=== PATIENT | female | born 1985 | race Caucasian/White ===

== ENCOUNTER → 2019-08-17 | Outpatient (CLI) | payer BC ==
[2019-08-17 10:44] LABS: Basophils % (A) 2 %; Eosinophils % (A) 1 %; HCT 38.4 % (34.0-46.0); HGB 12.5 gm/dL (11.4-16.0); Lymphocytes # (A) 0.4 k/uL (1.0-4.8); Lymphocytes % (A) 16 %; MCHC 32.5 g/dL (31.0-37.0); Mean Platelet Volume 6.6; Monocytes # (A) 0.2 k/uL (0-1.0); Monocytes % (A) 6 %; Neutrophils # (A) 1.7 k/uL (1.3-7.7); Neutrophils % (A) 74 %; Platelet Count 140 k/uL (150-450); RBC 4.99 m/uL (3.80-5.40); WBC 2.4 k/uL (3.8-10.6)
[2019-08-17 14:08] LABS: Glucose 2 Hour 130 mg/dL
[2019-08-17 17:09] LABS: African American GFR (CKD) 112.3 (60.0-200.0); Albumin 4.3 g/dL (3.80-4.90); Albumin/Globulin Ratio 2.53 (1.60-3.17); Anion Gap 10.5 mmol/L (4.00-12.00); BUN/Creat Ratio 11.25 Ratio (12.00-20.00); Calcium 8.9 mg/dL (8.7-10.3); Carbon Dioxide 19.5 mmol/L (21.6-31.8); Chol/HDL Ratio 4.16; Globulin 1.7 g/dL (1.6-3.3); LDL Cholesterol,Calculated 91.2 mg/dL (0.0-131.0); Total Bilirubin 0.6 mg/dL (0.2-1.2); VLDL Calculation 28.8 mg/dL (5.00-40.00)
== END | disposition home or self-care (01) ==
LOC: LABWHC1 09:17
PROVIDERS: ATTEND Family Medicine
DX: R42 Dizziness and giddiness (principal)
CPT/HCPCS: 36415; 80053; 80061; 82947; 82950; 84439; 84443; 85025